=== PATIENT | female | born 1930 | race Caucasian/White ===

== ENCOUNTER 2018-02-15 20:42 | Emergency (ER) | payer MEDICARE ==
[~2018-02-15] VITALS: Ht 165.1 cm; Wt 75.0 kg
[2018-02-15 20:49] VITALS: BP 166/68; PULSE 72; RESP 16; TEMP 98.8
[2018-02-15 20:57] VITALS: O2SAT 95
[2018-02-15 21:46] LABS: AUTOMATED NEUTROPHIL # 4.6 TH/MM3 (1.8-7.7); BASOPHIL % 0.5 % (0.0-2.0); EOSINOPHIL # 0.1 TH/MM3 (0-0.4); EOSINOPHIL % 1.6 % (0.0-4.0); HEMATOCRIT 39.5 % (35.0-46.0); HEMOGLOBIN 13.1 GM/DL (11.6-15.3); LYMPHOCYTE # 1.2 TH/MM3 (1.0-4.8); MEAN CELL VOLUME 92.4 FL (80.0-100.0); MEAN CORPUSCULAR HEMOGLOBIN 30.8 PG (27.0-34.0); MEAN CORPUSCULAR HGB CONC 33.3 % (32.0-36.0); MEAN PLATELET VOLUME 7.8 FL (7.0-11.0); MONO % 7.1 % (0.0-8.0); MONOCYTE # 0.5 TH/MM3 (0-0.9); NEUT % 71.8 % (16.0-70.0); PLATELET COUNT 211 TH/MM3 (150-450); RED BLOOD COUNT 4.27 MIL/MM3 (4.00-5.30); RED CELL DISTRIBUTION WIDTH 12.3 % (11.6-17.2); WHITE BLOOD COUNT 6.4 TH/MM3 (4.0-11.0)
[2018-02-15 21:56] LABS: CHLORIDE 102 MEQ/L (98-107); SODIUM (NA) 136 MEQ/L (136-145)
[2018-02-15 21:59] LABS: ALBUMIN 3.3 GM/DL (3.4-5.0); BICARBONATE 27.1 MEQ/L (21.0-32.0); CALCIUM 8.9 MG/DL (8.5-10.1); GLUCOSE,RANDOM 101 MG/DL (74-106)
[2018-02-15 22:00] VITALS: BP 169/65; PULSE 72; RESP 18; O2SAT 96
[2018-02-15 22:00] LABS: BLOOD UREA NITROGEN 23 MG/DL (7-18)
[2018-02-15 22:02] LABS: ALT (GPT) 21 U/L (10-53); AST (GOT) 32 U/L (15-37)
[2018-02-15 22:03] LABS: GLOMERULAR FILTRATION RATE 39 ML/MIN (>89)
[2018-02-15 22:04] LABS: TOTAL BILIRUBIN ADULT 0.4 MG/DL (0.2-1.0); TOTAL PROTEIN 7.6 GM/DL (6.4-8.2)
[2018-02-15 22:05] LABS: ALKALINE PHOSPHATASE 77 U/L (45-117)
--- NOTE | 2018-02-15 22:30 | PD ---
HPI Chief Complaint: Altered Mental Status Time Seen by Provider: 20:54 Travel History International Travel<30 days: No Contact w/Intl Traveler<30days: No Traveled to known affect area: No History of Present Illness HPI 87-year-old female arrives from nursing facility due to decreased function globally. She is less interactive, less alert and awake and more fatigued and has been for a couple days. Her urine was sent for analysis and the results are pending. The patient was sent here for evaluation for apparent change in mental status. Here she denies abdominal pain fever chills nausea vomiting. Patient refuses urinalysis to be collected by straight cath or by bedpan. PFSH Past Medical History Anemia: Yes Cardiovascular Problems: Yes Congestive Heart Failure: Yes Dementia: Yes GERD: Yes Past Surgical History Appendectomy: Yes Hysterectomy: Yes (Complete) Tonsillectomy: Yes Social History Alcohol Use: No Tobacco Use: No Substance Use: No Allergies-Medications (Allergen,Severity, Reaction): Coded Allergies: Penicillins (Verified Allergy, Severe, Respiratory Failure, 02/15/18) Review of Systems Except as stated in HPI: all other systems reviewed are Neg General / Constitutional: No: Fever Physical Exam Narrative GENERAL: 87-year-old female, pleasant, no acute distress, alert and oriented 4 Vital Signs Date Time Temp Pulse Resp B/P (MAP) Pulse Ox O2 Delivery O2 Flow Rate FiO2 02/15/18 20:58 72 16 95 Room Air 02/15/18 20:57 95 Room Air 02/15/18 20:49 98.8 72 16 166/68 (100) SKIN: Warm and dry. HEAD: Atraumatic. Normocephalic. EYES: Pupils equal and round. No scleral icterus. No injection or drainage. ENT: No nasal bleeding or discharge. Mucous membranes pink and moist. NECK: Trachea midline. No JVD. CARDIOVASCULAR: Regular rate and rhythm. RESPIRATORY: No accessory muscle use. Clear to auscultation. Breath sounds equal bilaterally. GASTROINTESTINAL: Soft. No focus of tenderness. MUSCULOSKELETAL: Extremities without clubbing, cyanosis, or edema. No obvious deformities. NEUROLOGICAL: Cranial nerves III through XII are normal. The patient's speech memory mentation are normal. She is AO4. Patient moves all extremities normally. PSYCHIATRIC: Appropriate mood and affect; insight and judgment normal. Data Data Last Documented VS Vital Signs Date Time Temp Pulse Resp B/P (MAP) Pulse Ox O2 Delivery O2 Flow Rate FiO2 02/15/18 20:58 72 16 95 Room Air 02/15/18 20:49 98.8 166/68 (100) Orders Orders Complete Blood Count With Diff (02/15/18 20:54) Comprehensive Metabolic Panel (02/15/18 20:54) Urinalysis - C+S If Indicated (02/15/18 20:54) Iv Access Insert/Monitor (02/15/18 20:54) Ecg Monitoring (02/15/18 20:54) Oximetry (02/15/18 20:54) Cath For Specimen (02/15/18 20:54) Ed Discharge Order (02/15/18 22:30) Labs Laboratory Tests Test 02/15/18 21:40 White Blood Count 6.4 TH/MM3 Red Blood Count 4.27 MIL/MM3 Hemoglobin 13.1 GM/DL Hematocrit 39.5 % Mean Corpuscular Volume 92.4 FL Mean Corpuscular Hemoglobin 30.8 PG Mean Corpuscular Hemoglobin Concent 33.3 % Red Cell Distribution Width 12.3 % Platelet Count 211 TH/MM3 Mean Platelet Volume 7.8 FL Neutrophils (%) (Auto) 71.8 % Lymphocytes (%) (Auto) 19.0 % Monocytes (%) (Auto) 7.1 % Eosinophils (%) (Auto) 1.6 % Basophils (%) (Auto) 0.5 % Neutrophils # (Auto) 4.6 TH/MM3 Lymphocytes # (Auto) 1.2 TH/MM3 Monocytes # (Auto) 0.5 TH/MM3 Eosinophils # (Auto) 0.1 TH/MM3 Basophils # (Auto) 0.0 TH/MM3 CBC Comment DIFF FINAL Differential Comment Blood Urea Nitrogen 23 MG/DL Creatinine 1.30 MG/DL Random Glucose 101 MG/DL Total Protein 7.6 GM/DL Albumin 3.3 GM/DL Calcium Level 8.9 MG/DL Alkaline Phosphatase 77 U/L Aspartate Amino Transf (AST/SGOT) 32 U/L Alanine Aminotransferase (ALT/SGPT) 21 U/L Total Bilirubin 0.4 MG/DL Sodium Level 136 MEQ/L Potassium Level 3.8 MEQ/L Chloride Level 102 MEQ/L Carbon Dioxide Level 27.1 MEQ/L Anion Gap 7 MEQ/L Estimat Glomerular Filtration Rate 39 ML/MIN MDM Medical Decision Making Medical Screen Exam Complete: Yes Emergency Medical Condition: Yes Medical Record Reviewed: Yes Differential Diagnosis Urinary tract infection, dehydration, anemia Narrative Course CBC & BMP Diagram 02/15/18 21:40 Total Protein 7.6, Albumin 3.3 L, Calcium Level 8.9, Alkaline Phosphatase 77, Aspartate Amino Transf (AST/SGOT) 32, Alanine Aminotransferase (ALT/SGPT) 21, Total Bilirubin 0.4 Patient refuses a urinalysis. Workup here is grossly unremarkable and she is stable for discharge back to her sending facility. Diagnosis Primary Impression: Possible urinary tract infection Referrals: Primary Care Physician call for appointment Med/Other Pt SpecificInfo: No Change to Meds Disposition: 01 DISCHARGE HOME Condition: Stable David Brown MD Feb 15, 2018 22:30
[2018-02-15] MEDS ORDERED: FAMO20TA2 PO (22:37)
[2018-02-15] MEDS ORDERED: ASPI-516 CHEW (22:37)
[2018-02-15] MEDS ORDERED: ONDA4TAB15 PO (22:37)
[2018-02-15] MEDS ORDERED: METO25TA3 PO (22:37)
[2018-02-15] MEDS ORDERED: OMEP20TA93 PO (22:37)
[2018-02-15] MEDS ORDERED: TEMA15CA PO (22:37)
[2018-02-15] MEDS ORDERED: TRAM50TA PO (22:37)
[2018-02-15] MEDS ORDERED: CITA10TA4 PO (22:37)
[2018-02-15 23:00] VITALS: BP 152/64; PULSE 72; RESP 18; O2SAT 97
[2018-02-16 00:05] VITALS: BP 155/66
== END 2018-02-16 00:32 | disposition home or self-care (01) ==
LOC: PHED 20:42
DX: R53.83 Other fatigue (principal); R41.82 Altered mental status, unspecified; D64.9 Anemia, unspecified; I50.9 Heart failure, unspecified; F03.90 Unspecified dementia, unspecified severity, without behavioral disturbance, psychotic disturbance, mood disturbance, and anxiety; K21.9 Gastro-esophageal reflux disease without esophagitis; Z88.0 Allergy status to penicillin
CPT/HCPCS: 80053; 85025; 99283